=== PATIENT | female | born 1970 | race Caucasian/White ===

== ENCOUNTER 2019-07-02 15:49 | Inpatient (IN) ==
[2019-07-02] MEDS ORDERED: GLUCAGON 1 MG VIAL IM PRN (18:31)
[2019-07-02] MEDS ORDERED: DEXTROSE 50% 25 GM/50 ML VIAL IV PRN (18:31)
[2019-07-02] MEDS ORDERED: ONDANSETRON 4 MG/2 ML VIAL IV PRN (18:31)
[2019-07-02] MEDS ORDERED: NICOTINE 21 MG/24 HR PATCH TRANSDERM PRN (18:31)
[2019-07-02] MEDS ORDERED: DOCUSATE SODIUM 100 MG CAPSULE PO PRN (18:31)
[2019-07-02] MEDS: carvediloL 12.5 MG TABLET PO SCH (20:38)
[2019-07-02] MEDS: ACETAMINOPHEN 325 MG TABLET PO PRN (20:39)
[2019-07-02] MEDS: SODIUM CHLORIDE 0.9% 1,000 ML IV SCH (20:41)
[2019-07-02] MEDS: INSULIN LISPRO 100 UNIT/ML SUBCUT SCH (20:57)
[2019-07-02] MEDS ORDERED: ENOXAPARIN 40 MG/0.4 ML SYRINGE SUBCUT SCH (21:00)
[2019-07-03] MEDS: SODIUM CHLORIDE 0.9% 1,000 ML IV SCH ×3 (03:53→12:23)
[2019-07-03 05:26] LABS: Basophils # 0.1 10*3/uL (0.0-0.2); Basophils % 0.7 % (0.0-0.8); Eosinophils # 0.4 10*3/uL (0.0-0.87); Eosinophils % 4.1 % (0.00-10.9); Hematocrit 39.3 VOL% (35.7-47.0); Hemoglobin 12.7 GM/DL (12.0-16.0); Immature Granulocytes % 0.2 %; Immature Granulocytes Absolute 0.02 #; Lymphocytes # 2.9 10*3/uL (1.4-4.0); Lymphocytes % 34.4 % (21.3-54.2); Mean Corpuscular HGB Conc 32.3 GM/DL (32-36); Mean Corpuscular Volume 94.2 FL (87-102); Mean Platelet Volume 11.1 FL (9.6-12.0); Monocytes % 6.6 % (1.7-12.7); Platelet Count 219 T/CUMM (130-400); Red Blood Count 4.17 MC/CUMM (3.8-5.5); White Blood Count 8.5 T/CUMM (4-12)
[2019-07-03 06:04] LABS: Calcium 8.3 MG/DL (8.5-10.1); Osmolality,Calculated 283.1 MOS/KG (273-304); Troponin I 0.138 NG/ML (0.00-0.045)
[2019-07-03 06:09] LABS: Risk Ratio 7.7; Thyroid Stimulating Hormone 1.31 uIU/ml (0.358-3.74); VLDL CHOLESTEROL 81.6 MG/DL
[2019-07-03] MEDS: INSULIN LISPRO 100 UNIT/ML SUBCUT SCH ×4 (08:59→21:32)
[2019-07-03] MEDS: carvediloL 12.5 MG TABLET PO SCH (09:00)
[2019-07-03] MEDS: PANTOPRAZOLE 40 MG TABLET PO SCH (09:00)
[2019-07-03] MEDS: ASPIRIN 325 MG TABLET PO SCH (09:00)
[2019-07-03] MEDS ORDERED: GLUCAGON 1 MG VIAL IM PRN ×2 (09:30→10:11)
[2019-07-03] MEDS ORDERED: DEXTROSE 50% 25 GM/50 ML VIAL IV PRN ×2 (09:30→10:11)
[2019-07-03] MEDS ORDERED: POTASSIUM CHLORIDE RIDER 10 MEQ in PREMIX 1 EACH IV PRN (09:31)
[2019-07-03] MEDS ORDERED: MAGNESIUM SULF RIDER 2 GM in PREMIX 1 EACH IV PRN (09:31)
[2019-07-03] MEDS: ENOXAPARIN 100 MG/ML SYRINGE SUBCUT SCH ×2 (10:37→21:32)
[2019-07-03] MEDS: ROSUVASTATIN 10 MG TABLET PO SCH (21:32)
[2019-07-03] MEDS: carvediloL 25 MG TABLET PO SCH (21:32)
[2019-07-04] MEDS ORDERED: diphenhydrAMINE CAP 25 MG CAPSULE PO ONE (00:01)
[2019-07-04] MEDS ORDERED: DIAZEPAM 5 MG TABLET PO ONE (00:01)
[2019-07-04 05:33] LABS: Basophils % 0.6 % (0.0-0.8); Eosinophils # 0.3 10*3/uL (0.0-0.87); Eosinophils % 3.8 % (0.00-10.9); Hematocrit 38.4 VOL% (35.7-47.0); Hemoglobin 12.5 GM/DL (12.0-16.0); Immature Granulocytes % 0.3 %; Immature Granulocytes Absolute 0.02 #; Lymphocytes # 2.8 10*3/uL (1.4-4.0); Lymphocytes % 38.6 % (21.3-54.2); Mean Corpuscular HGB Conc 32.6 GM/DL (32-36); Mean Corpuscular Volume 94.1 FL (87-102); Mean Platelet Volume 11.7 FL (9.6-12.0); Monocytes % 5.6 % (1.7-12.7); Neutrophils % 51.1 % (38.7-73.9); Platelet Count 214 T/CUMM (130-400); Red Blood Count 4.08 MC/CUMM (3.8-5.5); White Blood Count 7.1 T/CUMM (4-12)
[2019-07-04 05:37] LABS: INR 0.9; PT Patient Result 10.1 SECS (9.6-12.2)
[2019-07-04 05:58] LABS: Osmolality,Calculated 274.7 MOS/KG (273-304)
[2019-07-04] MEDS ORDERED: SODIUM CHLORIDE 0.9% 1,000 ML IV SCH (08:00)
[2019-07-04] MEDS: ENOXAPARIN 100 MG/ML SYRINGE SUBCUT SCH (09:14)
[2019-07-04] MEDS: SODIUM CHLORIDE 0.9% 1,000 ML IV SCH ×2 (09:15)
[2019-07-04] MEDS: INSULIN LISPRO 100 UNIT/ML SUBCUT SCH ×4 (09:15→20:26)
[2019-07-04] MEDS ORDERED: diphenhydrAMINE CAP 25 MG CAPSULE ONE ×2 (09:18)
[2019-07-04] MEDS ORDERED: DIAZEPAM 5 MG TABLET ONE (09:19)
[2019-07-04] MEDS: ACETAMINOPHEN 325 MG TABLET PO PRN (11:21)
[2019-07-04] MEDS ORDERED: LIDOCAINE 1% 20 ML VIAL ONE (13:39)
[2019-07-04] MEDS: ASPIRIN 325 MG TABLET PO SCH (15:22)
[2019-07-04] MEDS: PANTOPRAZOLE 40 MG TABLET PO SCH (15:22)
[2019-07-04] MEDS: carvediloL 25 MG TABLET PO SCH ×2 (15:23→20:21)
[2019-07-04] MEDS ORDERED: MIDAZOLAM 2 MG/2 ML VIAL ONE (15:42)
[2019-07-04] MEDS ORDERED: fentaNYL 100 MCG/2 ML VIAL ONE (15:42)
[2019-07-04] MEDS ORDERED: HYDROmorphone 2 MG/1 ML VIAL ONE (16:22)
[2019-07-04] MEDS ORDERED: ceFAZolin 1,000 MG VIAL ONE (16:28)
[2019-07-04] MEDS: ROSUVASTATIN 10 MG TABLET PO SCH (20:20)
[2019-07-05 05:41] LABS: Basophils # 0.1 10*3/uL (0.0-0.2); Basophils % 0.6 % (0.0-0.8); Eosinophils # 0.2 10*3/uL (0.0-0.87); Eosinophils % 2.7 % (0.00-10.9); Hematocrit 41.9 VOL% (35.7-47.0); Hemoglobin 13.7 GM/DL (12.0-16.0); Immature Granulocytes % 0.5 %; Immature Granulocytes Absolute 0.04 #; Lymphocytes # 2.1 10*3/uL (1.4-4.0); Lymphocytes % 23.6 % (21.3-54.2); Mean Corpuscular HGB Conc 32.7 GM/DL (32-36); Mean Corpuscular Volume 93.7 FL (87-102); Mean Platelet Volume 11.9 FL (9.6-12.0); Monocytes % 6.2 % (1.7-12.7); Neutrophils % 66.4 % (38.7-73.9); Platelet Count 158 T/CUMM (130-400); Red Blood Count 4.47 MC/CUMM (3.8-5.5); Red Cell Distribution Width 12.9 % (9.3-17.3); White Blood Count 8.9 T/CUMM (4-12)
[2019-07-05 05:57] LABS: Albumin 2.8 G/DL (3.4-5.0); Bilirubin,Total 1.5 MG/DL (0.2-1.0); Calcium 8.5 MG/DL (8.5-10.1); Osmolality,Calculated 274.7 MOS/KG (273-304)
[2019-07-05 06:10] LABS: Hypochromasia 1+; Platelet Estimate Normal
[2019-07-05] MEDS: ASPIRIN 325 MG TABLET PO SCH (08:34)
[2019-07-05] MEDS: PANTOPRAZOLE 40 MG TABLET PO SCH (08:34)
[2019-07-05] MEDS: carvediloL 25 MG TABLET PO SCH ×2 (08:34→20:31)
[2019-07-05] MEDS: INSULIN LISPRO 100 UNIT/ML SUBCUT SCH ×4 (11:32→20:35)
[2019-07-05 13:56] LABS: Basophils % 0.5 % (0.0-0.8); Eosinophils # 0.2 10*3/uL (0.0-0.87); Eosinophils % 2.9 % (0.00-10.9); Hematocrit 38.5 VOL% (35.7-47.0); Hemoglobin 12.8 GM/DL (12.0-16.0); Immature Granulocytes % 0.5 %; Immature Granulocytes Absolute 0.04 #; Lymphocytes % 25.6 % (21.3-54.2); Mean Corpuscular HGB Conc 33.2 GM/DL (32-36); Mean Corpuscular Volume 93.2 FL (87-102); Mean Platelet Volume 10.7 FL (9.6-12.0); Neutrophils % 64.5 % (38.7-73.9); Platelet Count 221 T/CUMM (130-400); Red Blood Count 4.13 MC/CUMM (3.8-5.5); Red Cell Distribution Width 12.8 % (9.3-17.3); White Blood Count 7.7 T/CUMM (4-12)
[2019-07-05 14:18] LABS: Calcium 8.4 MG/DL (8.5-10.1); Osmolality,Calculated 277.4 MOS/KG (273-304)
[2019-07-05] MEDS: sitaGLIPtin 25 MG TABLET PO SCH (20:31)
[2019-07-05] MEDS: ROSUVASTATIN 10 MG TABLET PO SCH (20:31)
[2019-07-05] MEDS: ZALEPLON 5 MG CAPSULE PO PRN (20:33)
[2019-07-05] MEDS: LOSARTAN 25 MG TABLET PO SCH (21:40)
[2019-07-06 05:17] LABS: Basophils # 0.1 10*3/uL (0.0-0.2); Basophils % 0.8 % (0.0-0.8); Eosinophils # 0.3 10*3/uL (0.0-0.87); Eosinophils % 3.5 % (0.00-10.9); Hematocrit 39.3 VOL% (35.7-47.0); Hemoglobin 12.9 GM/DL (12.0-16.0); Immature Granulocytes % 0.6 %; Immature Granulocytes Absolute 0.05 #; Lymphocytes # 2.2 10*3/uL (1.4-4.0); Lymphocytes % 27.2 % (21.3-54.2); Mean Corpuscular HGB Conc 32.8 GM/DL (32-36); Mean Corpuscular Volume 93.1 FL (87-102); Mean Platelet Volume 11.2 FL (9.6-12.0); Monocytes % 6.7 % (1.7-12.7); Neutrophils % 61.2 % (38.7-73.9); Platelet Count 226 T/CUMM (130-400); Red Blood Count 4.22 MC/CUMM (3.8-5.5); Red Cell Distribution Width 12.8 % (9.3-17.3); White Blood Count 7.9 T/CUMM (4-12)
[2019-07-06 05:44] LABS: Calcium 8.2 MG/DL (8.5-10.1); Osmolality,Calculated 279.4 MOS/KG (273-304)
[2019-07-06] MEDS ORDERED: POTASSIUM CHLORIDE 20 MEQ TABLET PO ONE (07:57)
[2019-07-06] MEDS: SODIUM CHLORIDE 0.9% 1,000 ML IV SCH ×2 (09:28→18:02)
[2019-07-06] MEDS: INSULIN LISPRO 100 UNIT/ML SUBCUT SCH ×3 (09:31→20:12)
[2019-07-06] MEDS ORDERED: NITROGLYCERIN 2% OINT 1 INCH/GM PACK TOP ONE ×2 (13:36→13:45)
[2019-07-06] MEDS ORDERED: LIDOCAINE MPF 1% /EPI 30 ML VIAL ONE (13:57)
[2019-07-06] MEDS ORDERED: CHLORHEXIDINE 0.12% ORAL RINSE 60 ML BOTTLE SWISH/SPIT ONE (13:57)
[2019-07-06] MEDS ORDERED: ALBUTEROL 2.5 MG/3 ML NEB RESP TX ONE (14:00)
[2019-07-06] MEDS ORDERED: ePHEDrine 50 MG/ML AMP ONE (14:48)
[2019-07-06] MEDS ORDERED: propofoL 200 MG/20 ML VIAL IV ONE (14:49)
[2019-07-06] MEDS ORDERED: fentaNYL 100 MCG/2 ML VIAL ONE (14:49)
[2019-07-06] MEDS ORDERED: LIDOCAINE 100 MG/5 ML SYRINGE ONE (14:49)
[2019-07-06] MEDS ORDERED: MIDAZOLAM 2 MG/2 ML VIAL ONE (14:49)
[2019-07-06] MEDS ORDERED: SEVOFLURANE 1 UNIT/15 MINUTE INH ONE (14:49)
[2019-07-06] MEDS ORDERED: PHENYLEPHRINE DRIP 20 MG/250 ML PREMIX IV ONE (14:49)
[2019-07-06] MEDS ORDERED: PHENYLEPHRINE 1 MG/10 ML SYRINGE IV ONE (14:50)
[2019-07-06] MEDS ORDERED: ROCURONIUM 100 MG/10 ML VIAL IV ONE (14:50)
[2019-07-06] MEDS ORDERED: GLYCOPYRROLATE 0.4 MG/2 ML VIAL ONE (14:50)
[2019-07-06] MEDS ORDERED: NEOSTIGMINE 10 MG/10 ML VIAL ONE (14:50)
[2019-07-06] MEDS ORDERED: ETOMIDATE 40 MG/20 ML VIAL IV ONE (14:50)
[2019-07-06] MEDS ORDERED: ONDANSETRON 4 MG/2 ML VIAL ONE (14:50)
[2019-07-06] MEDS ORDERED: SUCCINYLCHOLINE 200 MG/10 ML VIAL ONE (14:50)
[2019-07-06] MEDS: ASPIRIN 325 MG TABLET PO SCH (16:55)
[2019-07-06] MEDS: carvediloL 25 MG TABLET PO SCH ×2 (16:55→20:43)
[2019-07-06] MEDS: PANTOPRAZOLE 40 MG TABLET PO SCH (16:55)
[2019-07-06] MEDS: LOSARTAN 25 MG TABLET PO SCH (16:55)
[2019-07-06] MEDS: ROSUVASTATIN 10 MG TABLET PO SCH (20:43)
[2019-07-06] MEDS: sitaGLIPtin 25 MG TABLET PO SCH (20:43)
[2019-07-06] MEDS: CHLORHEXIDINE 0.12% ORAL RINSE 60 ML BOTTLE SWISH/SPIT SCH (20:43)
[2019-07-06] MEDS: ZALEPLON 5 MG CAPSULE PO PRN (20:43)
[2019-07-07] MEDS: SODIUM CHLORIDE 0.9% 1,000 ML IV SCH ×2 (04:02→14:23)
[2019-07-07 05:26] LABS: Basophils # 0.1 10*3/uL (0.0-0.2); Basophils % 0.6 % (0.0-0.8); Eosinophils # 0.3 10*3/uL (0.0-0.87); Eosinophils % 3.3 % (0.00-10.9); Hematocrit 37.7 VOL% (35.7-47.0); Hemoglobin 12.3 GM/DL (12.0-16.0); Immature Granulocytes % 0.3 %; Immature Granulocytes Absolute 0.03 #; Lymphocytes # 2.2 10*3/uL (1.4-4.0); Lymphocytes % 25.2 % (21.3-54.2); Mean Corpuscular HGB Conc 32.6 GM/DL (32-36); Mean Corpuscular Volume 93.8 FL (87-102); Mean Platelet Volume 11.2 FL (9.6-12.0); Monocytes % 6.2 % (1.7-12.7); Neutrophils % 64.4 % (38.7-73.9); Platelet Count 233 T/CUMM (130-400); Red Blood Count 4.02 MC/CUMM (3.8-5.5); Red Cell Distribution Width 12.9 % (9.3-17.3); White Blood Count 8.8 T/CUMM (4-12)
[2019-07-07 05:43] LABS: Calcium 8.4 MG/DL (8.5-10.1); Osmolality,Calculated 273.7 MOS/KG (273-304)
[2019-07-07] MEDS: PANTOPRAZOLE 40 MG TABLET PO SCH (09:11)
[2019-07-07] MEDS: ASPIRIN 325 MG TABLET PO SCH (09:11)
[2019-07-07] MEDS: LOSARTAN 25 MG TABLET PO SCH (09:11)
[2019-07-07] MEDS: carvediloL 25 MG TABLET PO SCH ×2 (09:11→20:17)
[2019-07-07] MEDS: INSULIN LISPRO 100 UNIT/ML SUBCUT SCH ×4 (09:14→20:17)
[2019-07-07] MEDS: CHLORHEXIDINE 0.12% ORAL RINSE 60 ML BOTTLE SWISH/SPIT SCH ×2 (09:53→20:18)
[2019-07-07] MEDS: NICOTINE 21 MG/24 HR PATCH TRANSDERM SCH (10:41)
[2019-07-07] MEDS: FLUTICASONE 50 MCG NASAL SPRAY 16 GM BOTTLE BOTH NARES SCH (13:06)
[2019-07-07] MEDS: ROSUVASTATIN 10 MG TABLET PO SCH (20:17)
[2019-07-07] MEDS: ZALEPLON 5 MG CAPSULE PO PRN (20:17)
[2019-07-07] MEDS: sitaGLIPtin 25 MG TABLET PO SCH (20:17)
[2019-07-08 05:16] LABS: Basophils % 0.4 % (0.0-0.8); Eosinophils # 0.4 10*3/uL (0.0-0.87); Eosinophils % 4.6 % (0.00-10.9); Hematocrit 39.3 VOL% (35.7-47.0); Hemoglobin 12.9 GM/DL (12.0-16.0); Immature Granulocytes % 0.4 %; Immature Granulocytes Absolute 0.04 #; Lymphocytes # 2.6 10*3/uL (1.4-4.0); Lymphocytes % 29.1 % (21.3-54.2); Mean Corpuscular HGB Conc 32.8 GM/DL (32-36); Mean Corpuscular Volume 93.8 FL (87-102); Mean Platelet Volume 11.3 FL (9.6-12.0); Monocytes % 6.3 % (1.7-12.7); Neutrophils % 59.2 % (38.7-73.9); Platelet Count 228 T/CUMM (130-400); Red Blood Count 4.19 MC/CUMM (3.8-5.5)
[2019-07-08 05:46] LABS: Calcium 8.5 MG/DL (8.5-10.1); Osmolality,Calculated 277.4 MOS/KG (273-304)
[2019-07-08] MEDS: INSULIN LISPRO 100 UNIT/ML SUBCUT SCH ×4 (08:37→21:11)
[2019-07-08] MEDS: ASPIRIN 325 MG TABLET PO SCH (08:37)
[2019-07-08] MEDS: PANTOPRAZOLE 40 MG TABLET PO SCH (08:37)
[2019-07-08] MEDS: NICOTINE 21 MG/24 HR PATCH TRANSDERM SCH (08:38)
[2019-07-08] MEDS: carvediloL 25 MG TABLET PO SCH ×2 (08:38→21:07)
[2019-07-08] MEDS: LOSARTAN 25 MG TABLET PO SCH (08:38)
[2019-07-08] MEDS: CHLORHEXIDINE 0.12% ORAL RINSE 60 ML BOTTLE SWISH/SPIT SCH ×2 (08:40→21:07)
[2019-07-08] MEDS: FLUTICASONE 50 MCG NASAL SPRAY 16 GM BOTTLE BOTH NARES SCH (08:40)
[2019-07-08] MEDS: ROSUVASTATIN 10 MG TABLET PO SCH (21:07)
[2019-07-08] MEDS: sitaGLIPtin 25 MG TABLET PO SCH (21:07)
[2019-07-08] MEDS: ZALEPLON 5 MG CAPSULE PO PRN (21:07)
[2019-07-09 05:39] LABS: Basophils # 0.1 10*3/uL (0.0-0.2); Basophils % 0.6 % (0.0-0.8); Eosinophils # 0.4 10*3/uL (0.0-0.87); Eosinophils % 5.2 % (0.00-10.9); Hematocrit 38.8 VOL% (35.7-47.0); Hemoglobin 12.6 GM/DL (12.0-16.0); Immature Granulocytes % 0.6 %; Immature Granulocytes Absolute 0.05 #; Lymphocytes # 2.6 10*3/uL (1.4-4.0); Lymphocytes % 30.8 % (21.3-54.2); Mean Corpuscular HGB Conc 32.5 GM/DL (32-36); Mean Corpuscular Volume 93.5 FL (87-102); Mean Platelet Volume 11.4 FL (9.6-12.0); Monocytes % 8.1 % (1.7-12.7); Neutrophils % 54.7 % (38.7-73.9); Platelet Count 250 T/CUMM (130-400); Red Blood Count 4.15 MC/CUMM (3.8-5.5); Red Cell Distribution Width 12.9 % (9.3-17.3); White Blood Count 8.3 T/CUMM (4-12)
[2019-07-09 05:56] LABS: Calcium 9.1 MG/DL (8.5-10.1); Osmolality,Calculated 279.3 MOS/KG (273-304)
[2019-07-09] MEDS ORDERED: CEFUROXIME INJ 1,500 MG in SYRINGE 1 EACH IV ONE (07:07)
[2019-07-09] MEDS: carvediloL 25 MG TABLET PO SCH ×2 (08:59→20:56)
[2019-07-09] MEDS: LOSARTAN 25 MG TABLET PO SCH (08:59)
[2019-07-09] MEDS: CHLORHEXIDINE 0.12% ORAL RINSE 60 ML BOTTLE SWISH/SPIT SCH ×4 (09:00→21:21)
[2019-07-09] MEDS: NICOTINE 21 MG/24 HR PATCH TRANSDERM SCH (09:00)
[2019-07-09] MEDS: ASPIRIN 325 MG TABLET PO SCH (09:00)
[2019-07-09] MEDS: PANTOPRAZOLE 40 MG TABLET PO SCH (09:00)
[2019-07-09] MEDS: FLUTICASONE 50 MCG NASAL SPRAY 16 GM BOTTLE BOTH NARES SCH (09:03)
[2019-07-09] MEDS: INSULIN LISPRO 100 UNIT/ML SUBCUT SCH ×4 (09:59→20:55)
[2019-07-09] MEDS: CHLORHEXIDINE 4% SOLN 118 ML BOTTLE TOP SCH ×2 (15:11→20:56)
[2019-07-09] MEDS ORDERED: DIAZEPAM 5 MG TABLET PO ONE (18:49)
[2019-07-09] MEDS: sitaGLIPtin 25 MG TABLET PO SCH (20:56)
[2019-07-09] MEDS ORDERED: ROSUVASTATIN 20 MG TABLET PO SCH (21:00)
[2019-07-10 05:08] LABS: Basophils # 0.1 10*3/uL (0.0-0.2); Basophils % 0.6 % (0.0-0.8); Eosinophils # 0.4 10*3/uL (0.0-0.87); Hematocrit 41.7 VOL% (35.7-47.0); Hemoglobin 13.8 GM/DL (12.0-16.0); Immature Granulocytes % 0.5 %; Immature Granulocytes Absolute 0.04 #; Lymphocytes # 2.5 10*3/uL (1.4-4.0); Lymphocytes % 28.9 % (21.3-54.2); Mean Corpuscular HGB Conc 33.1 GM/DL (32-36); Mean Corpuscular Volume 93.7 FL (87-102); Mean Platelet Volume 10.9 FL (9.6-12.0); Monocytes % 6.3 % (1.7-12.7); Neutrophils % 58.7 % (38.7-73.9); Platelet Count 271 T/CUMM (130-400); Red Blood Count 4.45 MC/CUMM (3.8-5.5); Red Cell Distribution Width 12.9 % (9.3-17.3); White Blood Count 8.7 T/CUMM (4-12)
[2019-07-10] MEDS ORDERED: TISSUE ADHESIVE 1 EACH APPLICATOR TOP ONE (05:19)
[2019-07-10] MEDS: SODIUM CHLORIDE 0.9% 1,000 ML IV SCH ×2 (05:19→09:17)
[2019-07-10] MEDS ORDERED: PAPAVERINE 60 MG/2 ML VIAL ONE (05:19)
[2019-07-10] MEDS ORDERED: VANCOMYCIN 1,000 MG VIAL ONE (05:19)
[2019-07-10] MEDS: CHLORHEXIDINE 4% SOLN 118 ML BOTTLE TOP SCH (05:21)
[2019-07-10] MEDS ORDERED: CEFUROXIME INJ 1,500 MG in SYRINGE 1 EACH IV ONE (05:30)
[2019-07-10 05:41] LABS: Calcium 9.4 MG/DL (8.5-10.1); Osmolality,Calculated 275.5 MOS/KG (273-304)
[2019-07-10] MEDS ORDERED: DIAZEPAM 5 MG TABLET PO ONE (06:30)
[2019-07-10] MEDS ORDERED: FAMOTIDINE 20 MG TABLET PO ONE (06:30)
[2019-07-10] MEDS ORDERED: SEVOFLURANE 1 UNIT/15 MINUTE INH ONE ×2 (06:39→10:31)
[2019-07-10 07:40] LABS: ABG Base Excess 2.4 MMOL/L (-2.5-2.5); ABG HCO3 26.6 MMOL/L (20-26); ABG PCO2 44.2 MM HG (35-48); ABG PH 7.404 (7.35-7.45); ABG TCO2 23.9 MMOL/L (23-27); Glucose Heart Surgery 127 MG/DL (74-106); Hematocrit Heart Surgery 41.4 PERCENT (37-47); Hemoglobin Heart Surgery 13.5 G/DL (12.0-16.0); Ionized Calcium Arterial 1.19 MMOL/L (1.21-1.46); PCO2 Patient Temp Arterial 44.2 MMHG; PH Patient Temp Arterial 7.404; Patient Temperature 37 CELCIUS; Potassium Heart/CVR 4.5 MMOL/L (3.5-5.1); Sodium Heart/CVR 136 MMOL/L (135-145)
[2019-07-10 08:43] LABS: Apearance,Urine CLEAR (Clear); Bilirubin,Urine Negative (Negative); Blood, Urine Negative (Negative); Glucose,Urine (UA) Negative (Negative); Ketones,Urine Negative (Negative); Mucus,Urine Occasional /LPF (Occasional); Nitrite,Urine Negative (Negative); Protein,Urine Negative; RBC,Urine <1 /HPF (0-4); Squamous Epithelial Cell,Urine Occasional /HPF (0-10); Urine Color Yellow (Yellow); Urine Specific Gravity 1.013 (1.001-1.035)
[2019-07-10] MEDS ORDERED: PHENYLEPHRINE DRIP 20 MG/250 ML PREMIX IV ONE (08:46)
[2019-07-10] MEDS ORDERED: CALCIUM CHLORIDE 1,000 MG/10 ML VIAL IV ONE (08:46)
[2019-07-10] MEDS ORDERED: HEPARIN/NACL 0.9% 2 UNITS/ML 500 ML IV ONE (08:46)
[2019-07-10] MEDS ORDERED: NITROGLYCERIN DRIP 50 MG/250 ML BOTTLE IV ONE (08:46)
[2019-07-10] MEDS ORDERED: AMINOCAPROIC ACID 5,000 MG/20 ML VIAL ONE (08:47)
[2019-07-10] MEDS ORDERED: PHENYLEPHRINE 1 MG/10 ML SYRINGE IV ONE (08:47)
[2019-07-10 08:56] LABS: Hematocrit Heart Surgery 28.7 PERCENT (37-47); Hemoglobin Heart Surgery 9.3 G/DL (12.0-16.0); PCO2 Patient Temp Venous 35.5 MM HG; PH Patient Temp Venous 7.472; PO2 Patient Temp Venous 32.7 MM HG; Potassium Heart/CVR 5.1 MMOL/L (3.5-5.1); VBG Base Excess 2.5 MEQ/L (0-4); VBG HCO3 26.2 MEQ/L (24-28); VBG Oxygen Saturation 73.2 %; VBG PCO2 39.1 MMHG (41-51); VBG PH 7.442; VBG PO2 37.6 MMHG (17-40)
[2019-07-10] MEDS: NICOTINE 21 MG/24 HR PATCH TRANSDERM SCH (09:17)
[2019-07-10] MEDS: INSULIN LISPRO 100 UNIT/ML SUBCUT SCH (09:17)
[2019-07-10] MEDS: LOSARTAN 25 MG TABLET PO SCH (09:17)
[2019-07-10] MEDS: carvediloL 25 MG TABLET PO SCH (09:17)
[2019-07-10] MEDS: CHLORHEXIDINE 0.12% ORAL RINSE 60 ML BOTTLE SWISH/SPIT SCH ×3 (09:17→21:28)
[2019-07-10] MEDS: ASPIRIN 325 MG TABLET PO SCH (09:17)
[2019-07-10] MEDS: FLUTICASONE 50 MCG NASAL SPRAY 16 GM BOTTLE BOTH NARES SCH (09:17)
[2019-07-10] MEDS: PANTOPRAZOLE 40 MG TABLET PO SCH (09:18)
[2019-07-10] MEDS ORDERED: SODIUM BICARBONATE 50 MEQ/50 ML VIAL IV ONE ×2 (09:28→09:59)
[2019-07-10] MEDS ORDERED: MANNITOL 100 GM/500 ML BAG IV ONE (09:28)
[2019-07-10] MEDS ORDERED: DEXTROSE 5% KCL 20 MEQ 20 MEQ/1,000 ML BAG IV ONE (09:28)
[2019-07-10] MEDS ORDERED: ALBUMIN 25% 25 GM/100 ML VIAL IV ONE (09:28)
[2019-07-10] MEDS ORDERED: LIDOCAINE 100 MG/5 ML SYRINGE ONE ×2 (09:28→09:59)
[2019-07-10] MEDS ORDERED: PROTAMINE SULFATE 50 MG/5 ML VIAL IV ONE (09:29)
[2019-07-10] MEDS ORDERED: HEPARIN 10,000 UNIT/10 ML VIAL ONE (09:29)
[2019-07-10] MEDS ORDERED: MAGNESIUM SULFATE 5 GM/10 ML VIAL IV ONE (09:29)
[2019-07-10] MEDS ORDERED: methylPREDNISolone SOD SUC 1,000 MG/8 ML VIAL ONE (09:29)
[2019-07-10] MEDS ORDERED: PROTAMINE SULFATE 250 MG/25 ML VIAL IV ONE (09:29)
[2019-07-10] MEDS ORDERED: FUROSEMIDE 20 MG/2 ML VIAL ONE (09:29)
[2019-07-10 09:39] LABS: ABG Base Excess 0.7 MMOL/L (-2.5-2.5); ABG PCO2 41.3 MM HG (35-48); ABG PH 7.399 (7.35-7.45); ABG TCO2 23.3 MMOL/L (23-27); Glucose Heart Surgery 258 MG/DL (74-106); Hematocrit Heart Surgery 30.5 PERCENT (37-47); Hemoglobin Heart Surgery 9.9 G/DL (12.0-16.0); Ionized Calcium Arterial 1.24 MMOL/L (1.21-1.46); PCO2 Patient Temp Arterial 41.3 MMHG; PH Patient Temp Arterial 7.399; Patient Temperature 37 CELCIUS; Potassium Heart/CVR 4.8 MMOL/L (3.5-5.1); Sodium Heart/CVR 129 MMOL/L (135-145)
[2019-07-10] MEDS ORDERED: THROMBIN TOPICAL (RECOMBINANT) 5,000 UNIT VIAL TOP ONE (09:43)
[2019-07-10] MEDS ORDERED: POTASSIUM CHLORIDE RIDER 100 ML IV ONE (09:59)
[2019-07-10] MEDS ORDERED: CALCIUM CHLORIDE 1,000 MG/10 ML SYRINGE IV ONE (09:59)
[2019-07-10] MEDS ORDERED: ALBUMIN 5% 12.5 GM/250 ML VIAL IV ONE (09:59)
[2019-07-10] MEDS ORDERED: EPINEPHrine 1 MG/10 ML SYRINGE ONE (09:59)
[2019-07-10] MEDS ORDERED: ATROPINE 1 MG/10 ML SYRINGE ONE (10:00)
[2019-07-10] MEDS ORDERED: CALCIUM CHLORIDE 1,000 MG/10 ML SYRINGE IV PRN (10:17)
[2019-07-10] MEDS ORDERED: MIDAZOLAM 2 MG/2 ML VIAL IV PRN (10:17)
[2019-07-10] MEDS ORDERED: CHLORHEXIDINE 4% SOLN 118 ML BOTTLE TOP PRN (10:17)
[2019-07-10] MEDS ORDERED: MAGNESIUM SULF RIDER 4 GM in PREMIX 1 EACH IV PRN (10:17)
[2019-07-10] MEDS ORDERED: ACETAMINOPHEN 650 MG SUPP RECTAL PRN (10:17)
[2019-07-10] MEDS ORDERED: INSULIN REGULAR 100 UNIT/ML IV PRN (10:17)
[2019-07-10] MEDS ORDERED: SODIUM CHLORIDE 0.9% 250 ML IV PRN (10:17)
[2019-07-10] MEDS ORDERED: DEXTROSE 10% 250 ML BAG IV PRN ×2 (10:17)
[2019-07-10] MEDS ORDERED: MAGNESIUM SULF RIDER 2 GM in PREMIX 1 EACH IV PRN (10:17)
[2019-07-10] MEDS ORDERED: ONDANSETRON 4 MG/2 ML VIAL IV PRN (10:17)
[2019-07-10] MEDS ORDERED: fentaNYL 250 MCG/5 ML VIAL ONE (10:31)
[2019-07-10] MEDS ORDERED: MIDAZOLAM 10 MG/2 ML VIAL ONE (10:32)
[2019-07-10] MEDS ORDERED: ETOMIDATE 40 MG/20 ML VIAL IV ONE (10:32)
[2019-07-10] MEDS ORDERED: METOPROLOL TARTRATE 5 MG/5 ML VIAL IV ONE (10:32)
[2019-07-10] MEDS ORDERED: MINERAL OIL/PETROLATUM OPH OINT 3.5 GM TUBE ONE (10:32)
[2019-07-10] MEDS ORDERED: SODIUM CHLORIDE 0.9% 1,000 ML IV ONE (10:32)
[2019-07-10] MEDS ORDERED: VECURONIUM 10 MG VIAL IV ONE (10:32)
[2019-07-10] MEDS ORDERED: LACTATED RINGERS 1,000 ML IV ONE (10:32)
[2019-07-10] MEDS ORDERED: SODIUM CHLORIDE 0.9% 200 ML IV ONE (10:32)
[2019-07-10] MEDS ORDERED: SUCCINYLCHOLINE 200 MG/10 ML VIAL ONE (10:32)
[2019-07-10] MEDS: SODIUM CHLORIDE 0.45% 1,000 ML IV SCH ×3 (11:03→23:42)
[2019-07-10 11:08] LABS: ABG Base Excess 2.3 MMOL/L (-2.5-2.5); ABG HCO3 26.6 MMOL/L (20-26); ABG Oxygen Saturation 96.8 % (95-100); ABG PCO2 40.2 MM HG (35-48); ABG PH 7.438 (7.35-7.45); ABG PO2 92.7 MM HG (80-95); ABG TCO2 27.8 MMOL/L (23-27); Glucose Heart Surgery 186 MG/DL (74-106); Hemoglobin Heart Surgery 11.4 G/DL (12.0-16.0); Potassium Heart/CVR 3.4 MMOL/L (3.5-5.1)
[2019-07-10 11:11] LABS: Basophils # 0.1 10*3/uL (0.0-0.2); Basophils % 0.5 % (0.0-0.8); Eosinophils # 0.2 10*3/uL (0.0-0.87); Eosinophils % 1.8 % (0.00-10.9); Hematocrit 32.2 VOL% (35.7-47.0); Immature Granulocytes % 1.4 %; Immature Granulocytes Absolute 0.14 #; Lymphocytes # 1.1 10*3/uL (1.4-4.0); Lymphocytes % 10.4 % (21.3-54.2); Mean Corpuscular HGB Conc 32.9 GM/DL (32-36); Mean Corpuscular Volume 94.7 FL (87-102); Mean Platelet Volume 10.8 FL (9.6-12.0); Monocytes % 5.6 % (1.7-12.7); Neutrophils % 80.3 % (38.7-73.9); White Blood Count 10.1 T/CUMM (4-12)
[2019-07-10] MEDS: POTASSIUM CHLORIDE RIDER 20 MEQ in PREMIX 1 EACH IV PRN ×4 (11:13→15:57)
[2019-07-10] MEDS ORDERED: ASPIRIN 325 MG TABLET PO ONE (11:14)
[2019-07-10 11:16] LABS: Hemoglobin 10.6 GM/DL (12.0-16.0); Platelet Count 221 T/CUMM (130-400)
[2019-07-10] MEDS: INSULIN REGULAR DRIP 100 ML IV SCH (11:27)
[2019-07-10 11:28] LABS: PT Patient Result 10.7 SECS (9.6-12.2); Partial Thromboplastin Time 26.7 SECS (20.8-36.0)
[2019-07-10 11:38] LABS: Blood Urea Nitrogen 9 MG/DL (7-18); Calcium 8.8 MG/DL (8.5-10.1); Estimated Glom Filtration Rate 107 ML/MIN; Glucose 187 MG/DL (74-106); Osmolality,Calculated 278.7 MOS/KG (273-304)
[2019-07-10] MEDS: MORPHINE 4 MG/1 ML VIAL IV PRN ×3 (11:41→17:00)
[2019-07-10] MEDS ORDERED: LACTATED RINGERS 1,000 ML IV PRN (11:47)
[2019-07-10] MEDS: ALBUMIN 5% 12.5 GM in PREMIX 1 EACH IV PRN ×2 (11:50→12:11)
[2019-07-10 13:01] LABS: ABG Base Excess 1.2 MMOL/L (-2.5-2.5); ABG HCO3 25.4 MMOL/L (20-26); ABG Oxygen Saturation 96.4 % (95-100); ABG PH 7.424 (7.35-7.45); ABG PO2 78.5 MM HG (80-95); ABG TCO2 23.1 MMOL/L (23-27); Glucose Heart Surgery 152 MG/DL (74-106); Hematocrit Heart Surgery 32.2 PERCENT (37-47); Hemoglobin Heart Surgery 10.4 G/DL (12.0-16.0); Potassium Heart/CVR 3.5 MMOL/L (3.5-5.1)
[2019-07-10] MEDS: POTASSIUM CHLORIDE RIDER 10 MEQ in PREMIX 1 EACH IV PRN ×2 (13:40→16:30)
[2019-07-10 15:41] LABS: ABG Base Excess 0.6 MMOL/L (-2.5-2.5); ABG Oxygen Saturation 99.1 % (95-100); ABG PH 7.366 (7.35-7.45); ABG TCO2 23.8 MMOL/L (23-27); Glucose Heart Surgery 158 MG/DL (74-106); Hematocrit Heart Surgery 33.4 PERCENT (37-47); Hemoglobin Heart Surgery 10.8 G/DL (12.0-16.0); Potassium Heart/CVR 3.8 MMOL/L (3.5-5.1)
[2019-07-10] MEDS: CEFUROXIME INJ 1,500 MG in SYRINGE 1 EACH IV SCH (18:34)
[2019-07-11 05:10] LABS: Basophils % 0.1 % (0.0-0.8); Hematocrit 33.8 VOL% (35.7-47.0); Hemoglobin 11.1 GM/DL (12.0-16.0); Immature Granulocytes % 0.6 %; Lymphocytes # 0.9 10*3/uL (1.4-4.0); Lymphocytes % 5.6 % (21.3-54.2); Mean Corpuscular HGB Conc 32.8 GM/DL (32-36); Mean Corpuscular Volume 94.4 FL (87-102); Mean Platelet Volume 12.1 FL (9.6-12.0); Neutrophils % 90.7 % (38.7-73.9); Platelet Count 248 T/CUMM (130-400); Red Blood Count 3.58 MC/CUMM (3.8-5.5); Red Cell Distribution Width 12.9 % (9.3-17.3); White Blood Count 15.5 T/CUMM (4-12)
[2019-07-11 05:14] LABS: Osmolality,Calculated 280.3 MOS/KG (273-304)
[2019-07-11] MEDS: MORPHINE 4 MG/1 ML VIAL IV PRN ×2 (05:18→08:48)
[2019-07-11 05:37] LABS: Hypochromasia 1+; Lymphocytes 6 % (20-55); Platelet Estimate Adequate; Segmented Neutrophils 89 % (50-85); Total Cells Counted 100
[2019-07-11] MEDS: INSULIN REGULAR DRIP 100 ML IV SCH (07:36)
[2019-07-11] MEDS: CEFUROXIME INJ 1,500 MG in SYRINGE 1 EACH IV SCH ×2 (07:42→17:51)
[2019-07-11] MEDS: SODIUM CHLORIDE 0.45% 1,000 ML IV SCH (07:43)
[2019-07-11] MEDS: INSULIN REGULAR 100 UNIT/ML SUBCUT SCH ×4 (08:23→22:02)
[2019-07-11] MEDS: FUROSEMIDE 40 MG TABLET PO SCH (08:52)
[2019-07-11] MEDS: ASPIRIN EC 325 MG TABLET PO SCH (08:53)
[2019-07-11] MEDS: PANTOPRAZOLE 40 MG VIAL IV SCH (08:54)
[2019-07-11] MEDS: CHLORHEXIDINE 0.12% ORAL RINSE 60 ML BOTTLE SWISH/SPIT SCH ×2 (09:37→22:00)
[2019-07-11] MEDS ORDERED: FUROSEMIDE 40 MG/4 ML VIAL IV ONE (09:40)
[2019-07-11] MEDS: CLOPIDOGREL 75 MG TABLET PO SCH (10:09)
[2019-07-11] MEDS: MORPHINE 10 MG/1 ML VIAL IV PRN ×4 (11:14→19:42)
[2019-07-11] MEDS: carvediloL 3.125 MG TABLET PO SCH ×2 (12:09→21:59)
[2019-07-11] MEDS ORDERED: guaiFENesin 200 MG/10 ML UDCUP PO PRN (14:09)
[2019-07-11] MEDS: ATORVASTATIN 40 MG TABLET PO SCH (21:59)
[2019-07-11] MEDS: DESITIN 4OZ/NYSTATIN 15 GRAM MIXTURE PASTE TOP SCH (22:02)
[2019-07-12] MEDS: INSULIN REGULAR 100 UNIT/ML SUBCUT SCH ×5 (00:38→16:39)
[2019-07-12 05:08] LABS: Basophils % 0.1 % (0.0-0.8); Eosinophils % 0.1 % (0.00-10.9); Hematocrit 33.4 VOL% (35.7-47.0); Hemoglobin 10.8 GM/DL (12.0-16.0); Immature Granulocytes % 0.7 %; Immature Granulocytes Absolute 0.09 #; Lymphocytes # 2.5 10*3/uL (1.4-4.0); Lymphocytes % 18.4 % (21.3-54.2); Mean Corpuscular HGB Conc 32.3 GM/DL (32-36); Mean Corpuscular Volume 95.7 FL (87-102); Mean Platelet Volume 11.5 FL (9.6-12.0); Monocytes % 8.3 % (1.7-12.7); Neutrophils % 72.4 % (38.7-73.9); Platelet Count 240 T/CUMM (130-400); Red Blood Count 3.49 MC/CUMM (3.8-5.5); Red Cell Distribution Width 13.4 % (9.3-17.3); White Blood Count 13.7 T/CUMM (4-12)
[2019-07-12 05:17] LABS: Calcium 8.2 MG/DL (8.5-10.1); Osmolality,Calculated 285.1 MOS/KG (273-304)
[2019-07-12] MEDS: MORPHINE 10 MG/1 ML VIAL IV PRN ×2 (08:26→12:51)
[2019-07-12] MEDS: PANTOPRAZOLE 40 MG VIAL IV SCH (09:02)
[2019-07-12] MEDS: ASPIRIN EC 325 MG TABLET PO SCH (09:02)
[2019-07-12] MEDS: carvediloL 3.125 MG TABLET PO SCH ×2 (09:02→20:46)
[2019-07-12] MEDS: CLOPIDOGREL 75 MG TABLET PO SCH (09:02)
[2019-07-12] MEDS: CHLORHEXIDINE 0.12% ORAL RINSE 60 ML BOTTLE SWISH/SPIT SCH ×2 (09:03→20:47)
[2019-07-12] MEDS: DESITIN 4OZ/NYSTATIN 15 GRAM MIXTURE PASTE TOP SCH (09:03)
[2019-07-12] MEDS: FUROSEMIDE 40 MG TABLET PO SCH (09:03)
[2019-07-12] MEDS: ATORVASTATIN 40 MG TABLET PO SCH (20:46)
[2019-07-12] MEDS: traZODone 50 MG TABLET PO SCH (20:46)
[2019-07-13] MEDS: MORPHINE 10 MG/1 ML VIAL IV PRN ×3 (02:00→21:15)
[2019-07-13] MEDS: INSULIN REGULAR 100 UNIT/ML SUBCUT SCH ×7 (05:51→22:08)
[2019-07-13] MEDS: DESITIN 4OZ/NYSTATIN 15 GRAM MIXTURE PASTE TOP SCH ×3 (06:01→21:22)
[2019-07-13 06:04] LABS: Basophils # 0.1 10*3/uL (0.0-0.2); Basophils % 0.4 % (0.0-0.8); Eosinophils # 0.1 10*3/uL (0.0-0.87); Eosinophils % 0.7 % (0.00-10.9); Hematocrit 35.6 VOL% (35.7-47.0); Hemoglobin 11.6 GM/DL (12.0-16.0); Immature Granulocytes % 0.8 %; Lymphocytes # 3.6 10*3/uL (1.4-4.0); Lymphocytes % 27.3 % (21.3-54.2); Mean Corpuscular HGB Conc 32.6 GM/DL (32-36); Mean Corpuscular Volume 94.7 FL (87-102); Mean Platelet Volume 10.9 FL (9.6-12.0); Monocytes % 8.2 % (1.7-12.7); Neutrophils % 62.6 % (38.7-73.9); Platelet Count 271 T/CUMM (130-400); Red Blood Count 3.76 MC/CUMM (3.8-5.5); Red Cell Distribution Width 13.2 % (9.3-17.3); White Blood Count 13.2 T/CUMM (4-12)
[2019-07-13 06:21] LABS: Calcium 8.8 MG/DL (8.5-10.1); Osmolality,Calculated 279.5 MOS/KG (273-304)
[2019-07-13] MEDS: FUROSEMIDE 40 MG TABLET PO SCH (09:29)
[2019-07-13] MEDS: ASPIRIN EC 325 MG TABLET PO SCH (09:29)
[2019-07-13] MEDS: carvediloL 3.125 MG TABLET PO SCH ×2 (09:30→21:17)
[2019-07-13] MEDS: CLOPIDOGREL 75 MG TABLET PO SCH (09:30)
[2019-07-13] MEDS: CHLORHEXIDINE 0.12% ORAL RINSE 60 ML BOTTLE SWISH/SPIT SCH ×2 (09:30→21:17)
[2019-07-13] MEDS: PANTOPRAZOLE 40 MG VIAL IV SCH (13:24)
[2019-07-13] MEDS: SPIRONOLACTONE 25 MG TABLET PO SCH ×2 (18:36→21:17)
[2019-07-13] MEDS: traZODone 50 MG TABLET PO SCH (21:17)
[2019-07-13] MEDS: ATORVASTATIN 40 MG TABLET PO SCH (21:17)
[2019-07-14] MEDS: MORPHINE 10 MG/1 ML VIAL IV PRN ×2 (01:23→17:44)
[2019-07-14 04:34] LABS: Basophils # 0.1 10*3/uL (0.0-0.2); Basophils % 0.5 % (0.0-0.8); Eosinophils # 0.2 10*3/uL (0.0-0.87); Eosinophils % 1.7 % (0.00-10.9); Hematocrit 35.4 VOL% (35.7-47.0); Hemoglobin 11.4 GM/DL (12.0-16.0); Immature Granulocytes % 0.9 %; Immature Granulocytes Absolute 0.11 #; Lymphocytes # 2.6 10*3/uL (1.4-4.0); Lymphocytes % 21.2 % (21.3-54.2); Mean Corpuscular HGB Conc 32.2 GM/DL (32-36); Mean Corpuscular Volume 94.4 FL (87-102); Mean Platelet Volume 10.8 FL (9.6-12.0); Monocytes % 7.1 % (1.7-12.7); Neutrophils % 68.6 % (38.7-73.9); Platelet Count 280 T/CUMM (130-400); Red Blood Count 3.75 MC/CUMM (3.8-5.5); White Blood Count 12.1 T/CUMM (4-12)
[2019-07-14 05:08] LABS: Calcium 8.9 MG/DL (8.5-10.1)
[2019-07-14] MEDS: INSULIN REGULAR 100 UNIT/ML SUBCUT SCH ×4 (08:00→21:05)
[2019-07-14] MEDS: carvediloL 3.125 MG TABLET PO SCH ×2 (08:29→21:04)
[2019-07-14] MEDS: FUROSEMIDE 40 MG TABLET PO SCH (08:29)
[2019-07-14] MEDS: SPIRONOLACTONE 25 MG TABLET PO SCH ×2 (08:29→21:04)
[2019-07-14] MEDS: ASPIRIN EC 325 MG TABLET PO SCH (08:30)
[2019-07-14] MEDS: CHLORHEXIDINE 0.12% ORAL RINSE 60 ML BOTTLE SWISH/SPIT SCH ×2 (08:30→21:07)
[2019-07-14] MEDS: PANTOPRAZOLE 40 MG VIAL IV SCH (08:30)
[2019-07-14] MEDS: CLOPIDOGREL 75 MG TABLET PO SCH (08:30)
[2019-07-14] MEDS: MORPHINE 4 MG/1 ML VIAL IV PRN ×2 (08:33→14:07)
[2019-07-14] MEDS: DESITIN 4OZ/NYSTATIN 15 GRAM MIXTURE PASTE TOP SCH ×2 (09:46→21:07)
[2019-07-14] MEDS ORDERED: ALBUTEROL/IPRATROPIUM 3 ML NEB RESP TX ONE (11:20)
[2019-07-14] MEDS: ALBUTEROL/IPRATROPIUM 3 ML NEB RESP TX SCH ×2 (13:09→19:10)
[2019-07-14] MEDS: ATORVASTATIN 40 MG TABLET PO SCH (21:04)
[2019-07-14] MEDS: traZODone 50 MG TABLET PO SCH (21:04)
[2019-07-15] MEDS: ALBUTEROL/IPRATROPIUM 3 ML NEB RESP TX SCH ×2 (00:40→07:06)
[2019-07-15 05:19] LABS: Basophils % 0.3 % (0.0-0.8); Eosinophils # 0.3 10*3/uL (0.0-0.87); Eosinophils % 3.2 % (0.00-10.9); Hematocrit 33.6 VOL% (35.7-47.0); Hemoglobin 11.1 GM/DL (12.0-16.0); Immature Granulocytes % 0.5 %; Immature Granulocytes Absolute 0.05 #; Lymphocytes # 2.1 10*3/uL (1.4-4.0); Lymphocytes % 21.8 % (21.3-54.2); Mean Corpuscular Volume 93.9 FL (87-102); Mean Platelet Volume 10.9 FL (9.6-12.0); Monocytes % 8.1 % (1.7-12.7); Neutrophils % 66.1 % (38.7-73.9); Platelet Count 292 T/CUMM (130-400); Red Blood Count 3.58 MC/CUMM (3.8-5.5); Red Cell Distribution Width 12.9 % (9.3-17.3); White Blood Count 9.5 T/CUMM (4-12)
[2019-07-15 05:33] LABS: Osmolality,Calculated 275.8 MOS/KG (273-304)
[2019-07-15] MEDS: INSULIN REGULAR 100 UNIT/ML SUBCUT SCH ×2 (08:30→14:07)
[2019-07-15] MEDS ORDERED: PANTOPRAZOLE 40 MG TABLET PO SCH (09:00)
[2019-07-15] MEDS: ASPIRIN EC 325 MG TABLET PO SCH (09:09)
[2019-07-15] MEDS: CLOPIDOGREL 75 MG TABLET PO SCH (09:09)
[2019-07-15] MEDS: FUROSEMIDE 40 MG TABLET PO SCH (09:09)
[2019-07-15] MEDS: SPIRONOLACTONE 25 MG TABLET PO SCH (09:09)
[2019-07-15] MEDS: CHLORHEXIDINE 0.12% ORAL RINSE 60 ML BOTTLE SWISH/SPIT SCH (09:10)
[2019-07-15] MEDS: carvediloL 3.125 MG TABLET PO SCH (09:10)
[2019-07-15] MEDS: DESITIN 4OZ/NYSTATIN 15 GRAM MIXTURE PASTE TOP SCH (09:13)
[2019-07-15] MEDS ORDERED: POTASSIUM CHLORIDE 20 MEQ TABLET PO PRN (09:21)
[2019-07-15 12:17] VITALS: BP 118/72
== END 2019-07-15 14:12 | disposition home health service (06) | DRG 234 ==
LOC: EDBD → EDUNIT# → N.EDINP 15:49 → N.ED 15:49 → N.TELEN 17:12 → N.CVR 07-10 08:32 → N.ICU 07-10 18:24 → N.TELES 07-11 15:38
PROVIDERS: ADMIT Internal Medicine; ATTEND Internal Medicine Cardiovascular Disease
PROC: CLCCHCL (ICD-10-PCS; 2019-07-04 16:15)